=== PATIENT | male | born 1945 | race Two or more races ===

== ENCOUNTER 2017-03-10 04:44 | Inpatient (IN) | payer OTHER ==
[~2017-03-10] VITALS: Ht 180.3 cm; Wt 72.6 kg
[2017-03-10] VITALS (14 sets, daily range): BP systolic 86–173; BP diastolic 52–121
[2017-03-10 06:14] LABS: BASOPHIL % 0.7 % (0-2); PLATELET COUNT 229 x10^3mcL (130-400); RED CELL DISTRIBUTION WIDTH 17.5 % (11.5-14.5)
[2017-03-10 06:23] LABS: CARBON DIOXIDE 18.1 mmol/L (21-32); CHLORIDE SERUM 106 mmol/L (98-107); GLUCOSE SERUM 47.1 mg/dL (74-106); POTASSIUM SERUM 3.8 mmol/L (3.5-5.1); SODIUM SERUM 141 mmol/L (136-145)
[2017-03-10 06:24] LABS: ALKALINE PHOSPHATASE 225 U/L (46-116); ALT/SGPT 27 U/L (16-63); AST/SGOT 34 U/L (15-37); BILIRUBIN TOTAL 0.46 mg/dL (0.20-1.00); CALCIUM 8.6 mg/dL (8.5-10.1); CREATININE SERUM 1.1 mg/dL (0.7-1.3); LIPASE 88 IU/L (73-393); TOTAL PROTEIN, SERUM 6.9 g/dL (6.4-8.2)
[2017-03-10 06:28] LABS: CK-MB 4.3 ng/mL (0-3.6)
[2017-03-10 07:23] LABS: UA SPECIFIC GRAVITY 1.025 (1.005-1.035); microscopic required? YES; urine erythrocyte 2+ (NEGATIVE)
[2017-03-10 08:50] LABS: MAGNESIUM 1.8 mg/dL (1.8-2.4)
[2017-03-10 08:54] LABS: CHOLESTEROL/HDL RATIO 1.7
[2017-03-10 08:59] LABS: FREE THYROXINE INDEX 3.6 ug/dL (1.4-4.5); T4(THYROXINE) 8.9 ug/dL (4.7-13.3)
[2017-03-10 09:19] LABS: FREE T4 1.37 ng/dL (0.76-1.46)
[2017-03-10 09:40] LABS: AMPHETAMINE QUAL UR NONE DETECTED (NEG <=1000)
[2017-03-10 16:54] LABS: PLATELET COUNT 207 x10^3mcL (130-400)
[2017-03-10 17:18] LABS: RED CELL DISTRIBUTION WIDTH 17.2 % (11.5-14.5)
[2017-03-10 17:29] LABS: BAND NEUTROPHIL 6 % (0-10); BASOPHIL 0 % (0-2); MONOCYTE 4 % (0-7); SEGMENTED NEUTROPHILS 84 % (37-75)
[2017-03-10 17:30] LABS: rbc morphology (normal/abnorm) ABNORMAL (NORMAL)
[2017-03-10 18:25] LABS: CALCIUM 7.3 mg/dL (8.5-10.1); CARBON DIOXIDE 17.7 mmol/L (21-32); CHLORIDE SERUM 106 mmol/L (98-107); CREATININE SERUM 1.8 mg/dL (0.7-1.3); POTASSIUM SERUM 4.5 mmol/L (3.5-5.1); SODIUM SERUM 141 mmol/L (136-145)
[2017-03-10 18:27] LABS: GLUCOSE SERUM 476 mg/dL (74-106)
[2017-03-11 01:05] VITALS: BP 104/52
[2017-03-11 02:42] LABS: CALCIUM 6.9 mg/dL (8.5-10.1); CARBON DIOXIDE 19.1 mmol/L (21-32); CHLORIDE SERUM 103 mmol/L (98-107); CREATININE SERUM 2.2 mg/dL (0.7-1.3); MAGNESIUM 2.1 mg/dL (1.8-2.4); PHOSPHOROUS 6.1 mg/dL (2.5-4.9); POTASSIUM SERUM 4.4 mmol/L (3.5-5.1); SODIUM SERUM 142 mmol/L (136-145)
[2017-03-11 02:43] LABS: GLUCOSE SERUM 496 mg/dL (74-106)
[2017-03-11 02:44] LABS: PLATELET COUNT 233 x10^3mcL (130-400)
[2017-03-11 03:00] LABS: BASOPHIL % 0 % (0-2); RED CELL DISTRIBUTION WIDTH 17.9 % (11.5-14.5)
[2017-03-11 03:20] VITALS: BP 129/62
[2017-03-11 03:25] VITALS: BP 129/62
[2017-03-11 05:10] VITALS: BP 64/34
== END 2017-03-11 09:36 | disposition expired | DRG 871 ==
LOC: ED 04:44 → IC 06:54
PROVIDERS: Emergency Medicine; ADMIT Family Medicine
PROC: 5A1935Z Respiratory Ventilation, Less than 24 Consecutive Hours (ICD-10-PCS; principal; 2017-03-10)
PROC: 0BH17EZ Insertion of Endotracheal Airway into Trachea, Via Natural or Artificial Opening (ICD-10-PCS; 2017-03-10)
PROC: 05HM33Z Insertion of Infusion Device into Right Internal Jugular Vein, Percutaneous Approach (ICD-10-PCS; 2017-03-10)
PROC: B543ZZA Ultrasonography of Right Jugular Veins, Guidance (ICD-10-PCS; 2017-03-10)
PROC: 5A12012 Performance of Cardiac Output, Single, Manual (ICD-10-PCS; 2017-03-10)
DX: A41.9 Sepsis, unspecified organism (principal); J96.00 Acute respiratory failure, unspecified whether with hypoxia or hypercapnia; N18.6 End stage renal disease; N17.0 Acute kidney failure with tubular necrosis; J69.0 Pneumonitis due to inhalation of food and vomit; R65.21 Severe sepsis with septic shock; I12.0 Hypertensive chronic kidney disease with stage 5 chronic kidney disease or end stage renal disease; E44.0 Moderate protein-calorie malnutrition; N48.30 Priapism, unspecified; G93.1 Anoxic brain damage, not elsewhere classified; Z94.0 Kidney transplant status; E11.22 Type 2 diabetes mellitus with diabetic chronic kidney disease; I25.10 Atherosclerotic heart disease of native coronary artery without angina pectoris; I48.91 Unspecified atrial fibrillation; J44.9 Chronic obstructive pulmonary disease, unspecified; E11.649 Type 2 diabetes mellitus with hypoglycemia without coma; E02 Subclinical iodine-deficiency hypothyroidism; R31.9 Hematuria, unspecified; E83.51 Hypocalcemia; E78.5 Hyperlipidemia, unspecified; Z99.2 Dependence on renal dialysis; Z68.22 Body mass index [BMI] 22.0-22.9, adult; I25.2 Old myocardial infarction; Z88.8 Allergy status to other drugs, medicaments and biological substances; Z88.6 Allergy status to analgesic agent; Z91.041 Radiographic dye allergy status
CPT/HCPCS: 36556; 36600; 82962; 83880; 84439; A4628; J0171; J0282; J1265; J1642; J1644; J1720; J1815; J1956; J2001; J2250; J2370; J2543; J2704; J3010; J3475; J3490; J7030; J7040; J7042; J7507; J7517; J7620; Q0092